=== PATIENT | female | born 2000 | race Caucasian/White ===

== ENCOUNTER 2019-07-17 18:24 | Emergency (ER) | payer OTHER ==
[~2019-07-17] VITALS: Ht 165.1 cm; Wt 63.6 kg
[2019-07-17 18:32] VITALS: Ht 165.1 cm; Wt 63.6 kg
[2019-07-17 19:06] LABS: GLUCOSE NEGATIVE (NEGATIVE); NITRITE NEGATIVE (NEGATIVE); SPECIFIC GRAVITY 1.025 (1.005-1.020)
[2019-07-17 19:07] LABS: BILIRUBIN NEGATIVE (NEGATIVE); KETONE NEGATIVE (NEGATIVE); UROBILINOGEN NORMAL (NORMAL)
[2019-07-17 19:08] LABS: BASOPHILS 0.3 % (0-2); EOSINOPHILS 2.8 % (0-7); HEMATOCRIT 42.9 % (36.0-48.0); HEMOGLOBIN 14.7 g/dL (12-16); IMMATURE GRANULOCYTES 0.2 % (0-5); LYMPHOCYTES 34.2 % (15-50); MCH 30.3 pg (26.0-34.0); MCHC 34.3 g/dL (31.0-37.0); MCV 88.5 fL (80.0-100.0); MEAN PLATELET VOLUME 9.5 fL (7.4-10.4); MONOCYTES 10.8 % (2-11); NEUTROPHILS 51.7 % (40-80); PLATELET COUNT 293 10x3/uL (130-400); RBC 4.85 10x6/uL (4.00-5.40)
[2019-07-17 19:21] LABS: CALC OSMOLALITY 275 mosm/kg (275-300); CALCIUM 9.3 mg/dL (8.5-10.1); CARBON DIOXIDE 23.2 mmol/L (21.0-32.0); CHLORIDE - SERUM 104 mmol/L (98-107); GLUCOSE 89 mg/dL (74-106); POTASSIUM - SERUM 3.6 mmol/L (3.5-5.1); SODIUM 139 mmol/L (136-145); UREA NITROGEN 11 mg/dL (7-18); eGFR NON AFRICAN AMERICAN 75 mL/min (90-120)
[2019-07-17 19:29] LABS: ALBUMIN 4.3 g/dL (3.4-5.0); ALKALINE PHOSPHATASE 91 U/L (30-120); ALT (SGPT) 24 U/L (10-68); AMYLASE - SERUM 51 U/L (25-115); BILIRUBIN - TOTAL 0.38 mg/dL (0.2-1.3); LIPASE 123 U/L (73-393); PROTEIN - SERUM 8.3 g/dL (6.4-8.2)
[2019-07-17 19:31] LABS: TROPONIN-I < 0.017 ng/mL (0.000-0.060)
[2019-07-17 19:36] LABS: HCG SERUM NEGATIVE (NEGATIVE)
[2019-07-17 22:30] VITALS: BP 143/80
== END 2019-07-17 22:30 | disposition home or self-care (01) ==
LOC: D.ER 18:24
PROVIDERS: Family Medicine
DX: R10.2 Pelvic and perineal pain (principal)

== ENCOUNTER 2020-07-12 21:53 | Emergency (ER) | payer OTHER ==
[~2020-07-12] VITALS: Ht 165.1 cm; Wt 109.1 kg
[2020-07-12 21:59] VITALS: Ht 165.1 cm; Wt 109.1 kg
[2020-07-12 22:33] LABS: INFLUENZA TYPE A NEGATIVE (NEGATIVE); INFLUENZA TYPE B NEGATIVE (NEGATIVE)
[2020-07-12] MEDS ORDERED: OMNICEF300 MG PO (22:53)
[2020-07-12] MEDS ORDERED: FLUTICASONE PRO16 GM NASAL (22:53)
[2020-07-12 22:56] LABS: SARS-CoV-2 ANTIGEN NEGATIVE- SARS-COV-2 (NEGATIVE)
[2020-07-12 23:14] VITALS: BP 179/80
== END 2020-07-12 23:14 | disposition home or self-care (01) ==
LOC: D.ER 21:53
PROVIDERS: Family Medicine
DX: J01.90 Acute sinusitis, unspecified (principal); R50.9 Fever, unspecified